=== PATIENT | male | born 1980 | race Caucasian/White ===

== ENCOUNTER 2024-05-17 09:04 | Inpatient (IN) | payer OTHER ==
[2024-05-17 10:30] VITALS: BMI 23.3
[2024-05-17] MEDS ORDERED: LOPERAMIDE HCL 2 MG CAPSULE PO PRN (13:14)
[2024-05-17] MEDS ORDERED: BENZOCAINE/MENTHOL (CHLORASEPTIC ) LOZENGE MM PRN (13:14)
[2024-05-17] MEDS ORDERED: BENZONATATE 200 MG CAPSULE PO PRN (13:14)
[2024-05-17] MEDS ORDERED: IBUPROFEN 400 MG TABLET (FP) PO PRN (13:14)
[2024-05-17] MEDS ORDERED: POLYETHYLENE GLYCOL (HEALTHYLAX) 3350 17 GM PACKET PO PRN (13:14)
[2024-05-17] MEDS ORDERED: MAGNESIUM HYDROX 2400MG/30ML ORAL SUSPENSION 30 ML CUP PO PRN (13:14)
[2024-05-17] MEDS ORDERED: ACETAMINOPHEN 325 MG TABLET (FP) PO PRN (13:14)
[2024-05-17] MEDS ORDERED: hydrOXYzine PAMOATE 25 MG CAPSULE (FP) PO PRN (13:14)
[2024-05-17] MEDS ORDERED: IBUPROFEN 600 MG TABLET (FP) PO PRN (13:14)
[2024-05-17] MEDS ORDERED: guaiFENesin 600 MG TABLET.ER (FP) PO PRN (13:14)
[2024-05-17] MEDS ORDERED: MAG HYDROX/AL HYDROX/SIMETH 30 ML UNIT-DOSE CUP PO PRN (13:14)
[2024-05-17] MEDS ORDERED: methaDONE HCL 10 MG TABLET (FOR DETOX USE ONLY) ONE (13:47)
[2024-05-17] MEDS: methaDONE HCL 10 MG TABLET PO ONE (13:48)
[2024-05-17] MEDS: cloNIDine HCL 0.1 MG TABLET PO SCH (13:49)
[2024-05-17] MEDS ORDERED: methaDONE HCL 10 MG TABLET PO PRN (15:14)
[2024-05-17] MEDS: THIAMINE 100 MG TABLET PO SCH (22:37)
[2024-05-17] MEDS: TRIMETHOBENZAMIDE HCL 200MG/2ML INJ IM ONE (22:37)
[2024-05-17] MEDS: MELATONIN 5 MG TABLETS PO SCH (22:37)
[2024-05-18] MEDS: NICOTINE 14 MG/24 HOURS TOPICAL PATCH TD SCH (07:00)
[2024-05-18] MEDS: PRENATAL VITAMINS W/ FOLIC ACID TABLET (FP) PO SCH (07:26)
[2024-05-18] MEDS: methaDONE 40 MG, methaDONE 10 MG PO ONE (10:43)
[2024-05-19] MEDS ORDERED: cloNIDine HCL 0.1 MG TABLET PO PRN
[2024-05-19 08:43] VITALS: RESP 16
[2024-05-19] MEDS: methaDONE 40 MG, methaDONE 20 MG PO ONE (09:56)
[2024-05-19] MEDS ORDERED: TRIMETHOBENZAMIDE HCL 200MG/2ML INJ IM PRN (10:26)
[2024-05-19 14:12] LABS: HEMATOCRIT 42.5 % (35.4-49); HEMOGLOBIN 14.6 GM/dL (11.7-16.9); MCH 30.2 pg (25.7-33.7); MCHC 34.4 g/dl (32.0-35.9); MEAN CELL VOLUME 87.8 fl (80-96); MEAN PLT VOLUME 8.4 fl (7.5-11.1); PLATELET COUNT 352 10^3/uL (134-434); RBC 4.84 M/mm3 (4.00-5.60); RDW 13.1 % (11.9-15.9); WHITE BLOOD COUNT 6.7 K/mm3 (4.0-10.0)
[2024-05-19 15:21] LABS: POTASSIUM 3.7 mmol/L (3.5-5.1)
[2024-05-19 15:25] LABS: ALBUMIN 3.7 g/dl (3.4-5.0); CALCIUM 9.2 mg/dL (8.5-10.1)
[2024-05-19 15:28] LABS: CREATININE 0.6 mg/dL (0.55-1.3)
[2024-05-19 15:30] LABS: BILIRUBIN,TOTAL 1.2 mg/dL (0.2-1); TOT PROT 7.6 g/dl (6.4-8.2)
[2024-05-20 07:07] VITALS: BP 116/60; PULSE 62; TEMP 98.7
[2024-05-20] MEDS ORDERED: methaDONE 40 MG, methaDONE 30 MG PO ONE (10:00)
[2024-05-21] MEDS ORDERED: methaDONE HCL 40 MG DISPERSABLE TABLET PO ONE (10:00)
[2024-05-22] MEDS ORDERED: methaDONE 80 MG, methaDONE 10 MG PO ONE (10:00)
== END 2024-05-20 07:19 | disposition left against medical advice (07) | DRG 770 ==
LOC: YASAS 09:04 → Y6N 13:46
PROVIDERS: ADMIT Surgery; ATTEND Allergy & Immunology
PROC: HZ2ZZZZ Detoxification Services for Substance Abuse Treatment (ICD-10-PCS; principal; 2024-05-17)
DX: F11.23 Opioid dependence with withdrawal (principal); F14.20 Cocaine dependence, uncomplicated; F17.210 Nicotine dependence, cigarettes, uncomplicated; F32.A Depression, unspecified; R76.11 Nonspecific reaction to tuberculin skin test without active tuberculosis
CPT/HCPCS: 36415; 80053; 80305; 80307; 85027; 86780; 93005; 93010